=== PATIENT | male | born 1970 | race Caucasian/White ===

== ENCOUNTER 2018-10-15 07:35 | Emergency (ER) | payer OTHER ==
--- NOTE | 2018-10-15 07:53 | UC ---
UC General HPI - HPI Summary HPI Summary: duplicate see prior note - History of Current Complaint Stated Complaint: BACK PAIN Hx Obtained From: Patient - Allergy/Home Medications Allergies/Adverse Reactions: Allergies Allergy/AdvReac Type Severity Reaction Status Date / Time No Known Allergies Allergy Verified 10/15/18 07:57 Home Medications: Home Medications Ibuprofen 400 mg PO Q4HR PRN 10/15/18 [History Confirmed 10/15/18] Meloxicam [Mobic] 15 mg PO DAILY 10/15/18 [History Confirmed 10/15/18] PMH/Surg Hx/FS Hx/Imm Hx Previously Healthy: No - duplicate see prior chart - Family History Known Family History: Positive: Non-Contributory Review of Systems All Other Systems Reviewed And Are Negative: Yes Constitutional: Positive: Other - duplicate - see prior note Skin: Positive: Other - duplicate - see prior notesee hpi Eyes: Positive: Negative - duplicate - see prior note, Other - duplicate - see prior note ENT: Positive: Negative - duplicate - see prior note Respiratory: Positive: Negative - duplicate - see prior note Cardiovascular: Positive: Negative - duplicate - see prior note Gastrointestinal: Positive: Negative - duplicate - see prior note Genitourinary: Positive: Negative - duplicate - see prior note Motor: Positive: Other - duplicate - see prior note Neurovascular: Positive: Other - duplicate - see prior note Musculoskeletal: Positive: Other: - duplicate - see prior note Neurological: Positive: Other - duplicate - see prior note Psychological: Positive: Negative - duplicate - see prior note Is Patient Immunocompromised?: No Physical Exam Triage Information Reviewed: Yes Appearance: Other: - duplicate - see prior note Vital Signs Reviewed: Yes Eyes: Positive: Other: - duplicate - see prior note ENT Exam: Other - duplicate - see prior note Neck exam: Other - duplicate - see prior note Respiratory Exam: Other - duplicate - see prior note Cardiovascular Exam: Other - duplicate - see prior note Abdominal Exam: Other - duplicate - see prior note Abdomen Description: Positive: Nontender Musculoskeletal Exam: Other - duplicate - see prior note Neurological Exam: Other - duplicate - see prior noteduplicate - see prior note Psychological Exam: Normal - duplicate - see prior note Skin Exam: Normal - duplicate - see prior note Course/Dx - Course Course Of Treatment: duplicate - see prior note - full dx's in prior note. - Diagnoses Provider Diagnosis: Osteoarthritis Discharge - Sign-Out/Discharge Documenting (check all that apply): Patient Departure All imaging exams completed and their final reports reviewed: Yes - Discharge Plan Condition: Stable Disposition: HOME Prescriptions: Cyclobenzaprine TAB* [Flexeril 10 MG TAB*] 10 mg PO TID PRN #30 tab PRN Reason: Spasms predniSONE TAB* [Deltasone 10 MG TAB*] 10 mg PO DAILY #20 tab Patient Education Materials: Osteoarthritis (ED), Degenerative Disc Disease (ED ) Referrals: [facility] [place] [facility] REFERRAL [Outside] Emeterio MYLES,Nico Adams [Primary Care Provider] - Sal Yi MD [Medical Doctor] - Additional Instructions: Follow up with your orthopedic surgeon next week. Call today for appointment. Go to the Emergency Department for any worse or new problems. Addendum - you may follow up with orthopedic surgeon of your choice. Referral placed today for [facility] [place] [facility] Orthopedics (Dr. Yi on referral call). - Billing Disposition and Condition Condition: STABLE Disposition: Home
[2018-10-15 07:57] VITALS: BP 133/71
--- NOTE | 2018-10-15 08:12 | UC ---
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 Back problems in the past and went to pull a root out of the ground and injured left lower back. Now has pain through the entire lower back and can not bend over. No previous reports available in [employer]. ISTOP neg report Bending over yesterday to pull weeds, sudden severe back pain, persisent today. Radiates to R leg, not groin. No b/b issues. Has been seeing orthopedic doctor ([facility]) for L knee injury 3 mo ago. Fell down stairs. At that time, injured neck and low back but priority at that time was knee. Just start mobic yesterday. Hx lumbar disc dz per pt report years ago, seen in [place]. Now lives in [facility] [place] 2 years. No urinary issues. Hurts to walk, bend over, straighten up. - History of Current Complaint Chief Complaint: UCBackPain Stated Complaint: BACK PAIN Time Seen by Provider: 10/15/18 07:57 Hx Obtained From: Patient Pain Intensity: 10 - Allergy/Home Medications Allergies/Adverse Reactions: Allergies Allergy/AdvReac Type Severity Reaction Status Date / Time No Known Allergies Allergy Verified 10/15/18 07:57 Home Medications: Home Medications Ibuprofen 400 mg PO Q4HR PRN 10/15/18 [History Confirmed 10/15/18] Meloxicam [Mobic] 15 mg PO DAILY 10/15/18 [History Confirmed 10/15/18] PMH/Surg Hx/FS Hx/Imm Hx Previously Healthy: No - back, neck, knee problems - Surgical History Surgical History: Yes Surgery Procedure, Year, and Place: Bilateral knee sugeries, - Family History Known Family History: Positive: Other - djd - Social History Alcohol Use: Occasionally Substance Use Type: Marijuana Smoking Status (MU): Heavy Every Day Tobacco Smoker Review of Systems All Other Systems Reviewed And Are Negative: Yes Constitutional: Positive: Negative Skin: Positive: Negative Eyes: Positive: Negative ENT: Positive: Negative Respiratory: Positive: Negative Cardiovascular: Positive: Negative Gastrointestinal: Positive: Negative Genitourinary: Positive: Negative Motor: Positive: Other - see hpi Neurovascular: Positive: Other - see hpi Musculoskeletal: Positive: Other: - see hpi Neurological: Positive: Other - see hpi Psychological: Positive: Negative Is Patient Immunocompromised?: No Physical Exam Triage Information Reviewed: Yes Appearance: Well-Nourished - sitting up, able to ambulate. uncomfortable with motion Vital Signs: Initial Vital Signs Temp 98.1 F 10/15/18 07:50 Pulse 77 10/15/18 07:50 Resp 16 10/15/18 07:50 BP 133/71 10/15/18 07:50 Pulse Ox 100 10/15/18 07:50 Vital Signs Reviewed: Yes Eye Exam: Normal ENT Exam: Normal Neck exam: Other - + straight, c/w arthritis Respiratory Exam: Normal Respiratory: Positive: Chest non-tender, Lungs clear, Normal breath sounds, No respiratory distress, No accessory muscle use Cardiovascular Exam: Normal Cardiovascular: Positive: Pulses Normal, Brisk Capillary Refill Abdominal Exam: Normal Abdomen Description: Positive: Nontender Musculoskeletal Exam: Other - L R low back + tender R paraspinal above the iliac crest. + spasm. Without point bony tenderness, but low back is achy. Denies b/b leakage or concerns. Distal lower ext + sens LT present. Good color. DTr patella 1+ R and L patella Neurological Exam: Normal - see [facility] [place] Psychological Exam: Normal - conversing easily and appropriately Skin Exam: Normal - nondiaphoretic. no visible or reported rash Course/Dx - Course Course Of Treatment: IStop Reference #: [id number] Urined dip reviewed. CT Lumbar reviewed with pt. Recommend f/u with orthopedic surgeon. He reports that he knee orthopedic surgeon told him that he could see him for his back ( later after pt departure, he called asking for referral, citing that his knee doctor would like him to see a back orthopedic doctor, as such referral to [facility] [place], Dr Yi on referral call). Willl start prednisone taper and flexeril. Ok acetaminophen as well, d/w pt. labs drawn (no fever, but has been taking nsaids) - cbc, crp, sed rate. Questions as posed answered to the best of my ability. - Diagnoses Provider Diagnosis: Disc degeneration, Arthritis, Bulging disc Discharge - Sign-Out/Discharge Documenting (check all that apply): Patient Departure All imaging exams completed and their final reports reviewed: Yes - Discharge Plan Condition: Stable Disposition: HOME Prescriptions: Cyclobenzaprine TAB* [Flexeril 10 MG TAB*] 10 mg PO TID PRN #30 tab PRN Reason: Spasms predniSONE TAB* [Deltasone 10 MG TAB*] 10 mg PO DAILY #20 tab Patient Education Materials: Osteoarthritis (ED), Degenerative Disc Disease (ED ) Referrals: [facility] [Outside] Emeterio MYLES,Nico Adams [Primary Care Provider] - Sal iY MD [Medical Doctor] - Additional Instructions: Follow up with your orthopedic surgeon next week. Call today for appointment. Go to the Emergency Department for any worse or new problems. Addendum - you may follow up with orthopedic surgeon of your choice. Referral placed today for [facility] (Dr. Yi on referral call). - Billing Disposition and Condition Condition: STABLE Disposition: Home
[2018-10-15] MEDS ORDERED: Aspirin 81 mg CHEW TAB* 81 MG TAB.CHEW PO ONE (09:56)
== END 2018-10-15 10:07 | disposition home or self-care (01) ==
LOC: UCCORT 07:35
DX: M47.896 Other spondylosis, lumbar region (principal); M51.06 Intervertebral disc disorders with myelopathy, lumbar region; M48.07 Spinal stenosis, lumbosacral region; M19.90 Unspecified osteoarthritis, unspecified site; F17.200 Nicotine dependence, unspecified, uncomplicated
CPT/HCPCS: 36415; 72131; 81003; 85652; 86140; 99202; G0463